=== PATIENT | female | born 2005 | race Hispanic/Latino ===

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

== ENCOUNTER 2025-11-28 13:08 | Emergency (ER) | payer BC ==
[~2025-11-28] VITALS: Ht 157.5 cm; Wt 73.1 kg
--- NOTE | 2025-11-28 13:59 | ERN ---
ED Note History of Present Illness Stated Complaint: NEAR SYNCOPE Chief Complaint: Syncope Time Seen by MD: 13:12 Time Seen by Midlevel: 13:13 Dictation: 20-year-old female presents to the emergency department due to reported having had a dizzy spell that occurred 2 hours prior to arrival. She states that she was standing over the use episode occurred. The patient states that she has been battling some respiratory symptoms for the past 2 days. Currently, she denies having any chest pain, chest pressure or shortness of breath. There is no report of any changes in vision, headache, nausea or vomiting. The patient does admit to having a decreased intake with the last 1 being last night and does not know whether or not this might be related to it. Upon initial evaluation, the patient presents with a normal neurological examination. 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 Past Medical History Past Medical History: No Pertinent History Surgical History: None PSYCH History: no pertinent psych hx LMP: Oct 24, 2025 : 0 RN Note Reviewed/Agreed w/PFSH: Yes Review of System Dictation Neuro: Dizziness Initial Vital Sign VS Vital Signs Date Time Temp Pulse Resp B/P (MAP) Pulse Ox O2 Delivery O2 Flow Rate FiO2 11/28/25 13:10 98.4 104 16 101/70 98 Room Air 0 11/28/25 13:46 21 Physical Exam Dictation General: awake, alert, NAD Head/Face: Normocephalic, atraumatic Eyes: PERRL, EOMI ENT: Oral mucosa moist Neck: Trachea midline, supple Cardiovascular: RRR, no edema Respiratory: Symmetrical, non-labored Abdomen: Soft, non-tender, non-distended, no guarding. Skin: Warm, dry, good turgor, no rash MS/Extremity: Pulses equal, no cyanosis, neurovascular intact, FROM Neuro: COAx4, GCS 15, steady gait, Psych: Normal behavior, mood, and affect normal Results (Laboratory/Radiology) Laboratory/Radiology Laboratory Tests Test 11/28/25 14:11 11/28/25 15:04 White Blood Count 6.0 K/uL (4.8-10.8) Red Blood Count 5.33 MIL/uL (4.00-5.50) Hemoglobin 10.6 g/dL (12.0-16.0) L Hematocrit 34.4 % (36-48) L Mean Corpuscular Volume 64.5 fL (79-99) L Mean Corpuscular Hemoglobin 19.9 pg (27.0-33.0) L Mean Corpuscular Hemoglobin Concent 30.8 g/dL (32.0-36.0) L Red Cell Distribution Width 16.1 % (11.0-15.5) H Platelet Count 300 K/uL (130-400) Mean Platelet Volume fL (7.5-10.5) Immature Granulocyte % (Auto) 0.3 % (0-1) Neutrophils (%) (Auto) 73.2 % (40.0-77.0) Lymphocytes (%) (Auto) 13.4 % (21.0-51.0) L Monocytes (%) (Auto) 10.1 % (3.0-13.0) Eosinophils (%) (Auto) 2.7 % (0.0-8.0) Basophils (%) (Auto) 0.3 % (0.0-5.0) Neutrophils # (Auto) 4.4 K/uL (1.8-7.7) Lymphocytes # (Auto) 0.8 K/uL (1.0-4.8) L Monocytes # (Auto) 0.6 K/uL (0.1-1.0) Eosinophils # (Auto) 0.16 K/uL (0.00-0.70) Basophils # (Auto) 0.02 K/uL (0.00-0.20) Absolute Immature Granulocyte (auto 0.02 K/uL (0-1) Nucleated Red Blood Cells 0.0 % (0.0-0.19) Red Blood Cell Morphology See comments Sodium Level 136 mmol/L (136-145) Potassium Level 3.3 mmol/L (3.5-5.1) L Chloride Level 103 mmol/L (101-111) Carbon Dioxide Level 26 mmol/L (21-32) Blood Urea Nitrogen 6 mg/dL (7-18) L Creatinine 0.7 mg/dL (0.5-1.0) Glomerular Filtration Rate Calc 125 mL/min (>90) Random Glucose 102 mg/dL (70-105) Total Calcium 8.0 mg/dL (8.5-10.1) L Total Bilirubin 0.3 mg/dL (0.2-1.0) Aspartate Amino Transf (AST/SGOT) 29 U/L (10-37) Alanine Aminotransferase (ALT/SGPT) 28 U/L (12-78) Alkaline Phosphatase 66 U/L (50-136) Troponin I High Sensitivity 5 ng/L (4-50) Total Protein 7.5 g/dL (6.0-8.3) Albumin 3.9 g/dL (3.5-5.0) Urine Color YELLOW (YELLOW) Urine Appearance CLOUDY (CLEAR) H Urine pH 5.5 (5.0-8.0) Urine Specific [place] 1.027 (1.001-1.031) Urine Protein 20 mg/dL (NEGATIVE) H Urine Glucose (UA) NEGATIVE mg/dL (NEGATIVE) Urine Ketones 10 mg/dL (NEGATIVE) H Urine Occult Blood LARGE (NEGATIVE) H Urine Nitrate NEGATIVE (NEGATIVE) Urine Bilirubin NEGATIVE mg/dL (NEGATIVE) Urine Urobilinogen 0.2 mg/dL (0.2-1.0) Urine Leukocyte Esterase 25 Teri/uL (NEGATIVE) H Urine RBC 11-25 /HPF (0-1) H Urine WBC 11-25 /HPF (0-1) H Urine Squamous Epithelial Cells FEW /HPF (0-2) Urine Other Crystals (Auto) 1 /HPF (None Seen) Urine Bacteria RARE /HPF (None Seen) Urine Other Casts 1 /LPF (None Seen) Labs Reviewed?: Yes EKG: (+) NSR EKG Comment: EKG done 11/28/2025 at 2:11 p.m. Ventricular rate 89 beats per minute MD 181 MS QRS 85 MS QT 353 MS No STEMI. X-RAY Comment: Chest x-ray one view with a normal-appearing cardiac silhouette and no infiltrates as interpreted by me. ED Course ED Course Orders Procedure Category Date Status Time Troponin I High LAB 11/28/25 Complete Sensitivity 13:55 Cbc With Differential LAB 11/28/25 Complete 13:55 Comprehensive LAB 11/28/25 Complete Metabolic Panel 13:55 Urinalysis Profile LAB 11/28/25 Complete 13:55 12 Lead Ekg Tracing- EKG 11/28/25 Complete Technical 13:55 Saline Lock Iv CPOE 11/28/25 Transmitted 13:55 Chest 1vw RAD 11/28/25 Resulted 13:55 Culture Urine WILNER 11/28/25 Logged 15:54 Vital Signs Date Time Temp Pulse Resp B/P (MAP) Pulse Ox O2 Delivery O2 Flow Rate FiO2 11/28/25 13:46 98.4 104 17 105/67 99 Room Air* 0 21 11/28/25 13:10 98.4 104 16 101/70 98 Room Air 0 Medical Decision Making MDM MDM: Differential diagnosis: STEMI, non STEMI, acute dehydration. Rationale: Tests considered and ordered secondary to shared decision making include: Previous outside records reviewed: Old ER visits. Risk of complication and/or morbidity or mortality of patient management: None Medications-Per medication reconciliation Need for hospitalization: Patient does not meet criteria for hospitalization. Need for emergency major/minor surgery: No There are no social concerns with this patient. Prescription drug management Prescriptions will include symptomatic care Patient's prior external medical records from other ER visits were reviewed by me as indicated. Prior testing and results from previous visits were reviewed. Prior tests were taken into account with medical decision making and resource utilization, independent historian/historians were used to obtain complete medical history. I independently interpreted the test that were performed, results were reviewed by me and considered findings on radiology if ordered. Medical management and examination interpretation discussions were had by me with other qualified healthcare professionals as indicated for the patient's care. DX & DISP Disposition: Discharge Departure Impression: Primary Impression: Dizziness Additional Impression: Mild dehydration Condition: Stable Referrals: SELF,REFERRAL (PCP) Time of Disposition: 16:00 JILL DIAZ Nov 28, 2025 13:59
[2025-11-28 14:18] LABS: IMMATURE GRANULOCYTE ABSOLUTE 0.02 K/uL (0-1); NUCLEATED RED BLOOD CELLS 0.0 % (0.0-0.19); PLATELET COUNT (AUTO) 300 K/uL (130-400); RED BLOOD CELL COUNT(AUTO) 5.33 MIL/uL (4.00-5.50); RED CELL DISTRIBUTION WIDTH 16.1 % (11.0-15.5); WHITE BLOOD COUNT (AUTO) 6.0 K/uL (4.8-10.8)
[2025-11-28 14:27] LABS: CREATININE 0.7 mg/dL (0.5-1.0); GLOMERULAR FILTR. RATE CALC 125.0 mL/min (>90); GLUCOSE,RANDOM 102.0 mg/dL (70-105); SODIUM SERUM 136.0 mmol/L (136-145); UREA NITROGEN, BLOOD 6.0 mg/dL (7-18)
[2025-11-28 14:32] LABS: ASPARTATE AMINOTRANSFERASE 29.0 U/L (10-37); TOTAL PROTEIN, SERUM 7.5 g/dL (6.0-8.3)
--- NOTE | 2025-11-28 14:39 | EKG ---
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
--- NOTE | 2025-11-28 14:39 | HMCIMG ---
EXAM: CR Chest, 1 View. CLINICAL HISTORY: Dizziness COMPARISON: None provided. FINDINGS: LUNGS: The lungs show no infiltrate or other acute finding. PLEURAL SPACES: No evidence of pleural effusion or pneumothorax. MEDIASTINUM: The cardiomediastinal silhouette is within normal limits. BONES: No aggressive appearing osseous lesion seen. IMPRESSION: No acute cardiopulmonary pathology is evident. /[place]
[2025-11-28 15:19] LABS: APPEARANCE,URINE CLOUDY (CLEAR); GLUCOSE, URINE (UA) NEGATIVE (NEGATIVE); LEUKOCYTE ESTERASE ,URINE 25 Leu/uL (NEGATIVE); NITRATE,URINE NEGATIVE (NEGATIVE); OCCULT BLOOD,URINE LARGE (NEGATIVE)
[2025-11-28 15:50] LABS: ADD UA MICROSCOPIC YES
[2025-11-28 15:53] LABS: OTHER CASTS, URINE 1 /LPF (None Seen); SQUAMOUS EPITHELIAL CELL,UR FEW /HPF (0-2); UNCLASSIFIED CRYSTAL 1 /HPF (None Seen)
[2025-11-28 16:07] VITALS: BP 107/68; PULSE 99; RESP 17; TEMP 98.4; O2SAT 99
== END 2025-11-28 16:15 | disposition home or self-care (01) ==
LOC: EDH 13:08
DX: R42 Dizziness and giddiness (principal); E86.0 Dehydration
CPT/HCPCS: 36415; 71045; 80053; 81001; 84484; 85025; 87086; 93005; 99284